=== PATIENT | male | born 1960 | race Caucasian/White ===

== ENCOUNTER 2021-10-08 11:23 | Emergency (ER) | payer BC ==
[~2021-10-08] VITALS: Ht 177.8 cm; Wt 90.7 kg
[2021-10-08 11:40] VITALS: BP_SYST 139
--- NOTE | 2021-10-08 11:45 | NUR ---
Patient to ER bed 4 to gown for evaluation. Side rails up. Report given to J Carlos PADILLA.
--- NOTE | 2021-10-08 12:30 | NUR ---
GEETA Call at bedside examining patient.
--- NOTE | 2021-10-08 13:00 | NUR ---
pt c/o facial swelling x 3-4 days.
--- NOTE | 2021-10-08 14:52 | NUR ---
A/OX4 VSS VERBALIZED UNDERSTANDING OF DC INSTRUCTIONS, AMBULATED WITH STEADY GAIT
== END 2021-10-08 14:51 | disposition home or self-care (01) ==
LOC: SED 11:23
DX: L55.0 Sunburn of first degree (principal); T20.10XA Burn of first degree of head, face, and neck, unspecified site, initial encounter; X58.XXXA Exposure to other specified factors, initial encounter; Y93.89 Activity, other specified; Y92.832 Beach as the place of occurrence of the external cause; Y99.8 Other external cause status
CPT/HCPCS: 99281

== ENCOUNTER 2021-10-09 17:53 | Observation (INO) | payer BC ==
[~2021-10-09] VITALS: Ht 177.8 cm; Wt 90.7 kg
[2021-10-09 18:35] VITALS: BP_SYST 158
[2021-10-10] MEDS ORDERED: DEXAMETHASONE SOD PHOSPHATE 4 MG/ML VIAL IVP ONE (00:30)
[2021-10-10] MEDS ORDERED: AMPICILLIN SODIUM/SULBACTAM NA 3 GM in NS 100 ML IV ONE ×2 (00:30→02:45)
[2021-10-10] MEDS ORDERED: DIPHENHYDRAMINE INJ 50 MG/ML VIAL IVP ONE (00:30)
[2021-10-10 01:41] LABS: BASOPHILS % (AUTO) 0.5 % (0.0-2.0); EOSINOPHILS # (AUTO) 0.4 K/uL (0.0-0.4); EOSINOPHILS % (AUTO) 4.4 % (0.0-4.0); HEMATOCRIT 41.2 % (36-54); HEMOGLOBIN 13.9 g/dL (14.0-18.0); LYMPHOCYTES # (AUTO) 2.5 K/uL (1.0-5.5); LYMPHOCYTES % (AUTO) 31.6 % (20.5-51.5); MEAN CORPUSCULAR HEMOGLOBIN 29 pg (27-31); MEAN CORPUSCULAR HGB CONC 34 % (32-36); MEAN CORPUSCULAR VOLUME 87 fL (79.0-98.0); MONOCYTES # (AUTO) 0.4 K/uL (0.0-1.0); MONOCYTES % (AUTO) 4.7 % (1.7-9.3); NEUTROPHILS # (AUTO) 4.7 K/uL (1.8-7.7); NEUTROPHILS % (AUTO) 58.8 % (40.0-70.0); PLATELET COUNT (AUTO) 156 K/uL (130-430); RED BLOOD CELL COUNT(AUTO) 4.76 MIL/uL (4.2-6.2); WHITE BLOOD COUNT (AUTO) 7.9 K/uL (4.8-10.8)
[2021-10-10] MEDS ORDERED: AMPICILLIN SODIUM/SULBACTAM NA 3 GM VIAL ONE ×2 (01:46→02:38)
[2021-10-10 01:50] LABS: ANION GAP 3 (5-15); CALCIUM 8.1 mg/dL (8.4-11.0); CHLORIDE 108 mmol/L (98-107); CREATININE 1.25 mg/dL (0.55-1.30); GLUCOSE 102 mg/dL (70-99); POTASSIUM 3.8 mmol/L (3.5-5.1); SODIUM SERUM 141 mmol/L (136-145); UREA NITROGEN, BLOOD 17 mg/dL (8-21)
[2021-10-10 01:56] LABS: ALANINE AMINOTRANSFERASE 13 U/L (12-78); ALBUMIN 3.6 g/dL (3.4-4.8); ASPARTATE AMINOTRANSFERASE 21 U/L (10-37); C-REACTIVE PROTEIN QUANT < 0.2 mg/dL (0-0.5); TOTAL BILIRUBIN 0.6 mg/dL (0.0-1.0)
[2021-10-10 02:05] LABS: GFR AFRICAN AMERICAN 76 mL/min (>90)
[2021-10-10 02:11] LABS: ERYTHROCYTE SEDIMENTATION RATE 11 MM/HR (0-15)
[2021-10-10] MEDS ORDERED: ACETAMINOPHEN 500 MG TABLET PO ONE (02:45)
[2021-10-10 08:18] VITALS: BP_SYST 141
[2021-10-10 08:35] LABS: BASOPHILS % (AUTO) 0.3 % (0.0-2.0); EOSINOPHILS % (AUTO) 0.2 % (0.0-4.0); HEMATOCRIT 42.9 % (36-54); HEMOGLOBIN 14.3 g/dL (14.0-18.0); LYMPHOCYTES # (AUTO) 1.1 K/uL (1.0-5.5); LYMPHOCYTES % (AUTO) 14.8 % (20.5-51.5); MEAN CORPUSCULAR HEMOGLOBIN 29 pg (27-31); MEAN CORPUSCULAR HGB CONC 33 % (32-36); MEAN CORPUSCULAR VOLUME 86 fL (79.0-98.0); MONOCYTES # (AUTO) 0.1 K/uL (0.0-1.0); MONOCYTES % (AUTO) 0.7 % (1.7-9.3); NEUTROPHILS # (AUTO) 6.2 K/uL (1.8-7.7); PLATELET COUNT (AUTO) 162 K/uL (130-430); RED BLOOD CELL COUNT(AUTO) 4.97 MIL/uL (4.2-6.2); WHITE BLOOD COUNT (AUTO) 7.4 K/uL (4.8-10.8)
[2021-10-10 09:07] LABS: CALCIUM 8.5 mg/dL (8.4-11.0); CREATININE 1.05 mg/dL (0.55-1.30); POTASSIUM 3.7 mmol/L (3.5-5.1)
[2021-10-10] MEDS ORDERED: lisinopriL 5 MG TABLET PO ONE (11:00)
[2021-10-10] MEDS: DIPHENHYDRAMINE HCL 12.5 MG/5 ML UDC PO PRN (11:17)
[2021-10-10] MEDS: AMPICILLIN SODIUM/SULBACTAM NA 1.5 GM in NS 50 ML IV SCH ×2 (11:32→17:54)
[2021-10-10 12:53] VITALS: BP_SYST 130
[2021-10-10 16:04] VITALS: BP_SYST 118
[2021-10-10] MEDS ORDERED: ACETAMINOPHEN 325 MG TABLET PO PRN (18:00)
[2021-10-10 20:00] VITALS: BP_SYST 121
[2021-10-10] MEDS: predniSONE 20 MG TABLET PO SCH (21:35)
[2021-10-11] VITALS: BP_SYST 127
[2021-10-11] MEDS: AMPICILLIN SODIUM/SULBACTAM NA 1.5 GM in NS 50 ML IV SCH ×3 (00:09→12:24)
[2021-10-11] MEDS: DIPHENHYDRAMINE HCL 12.5 MG/5 ML UDC PO PRN (05:30)
[2021-10-11 08:28] LABS: BASOPHILS % (AUTO) 0.2 % (0.0-2.0); HEMATOCRIT 41.7 % (36-54); LYMPHOCYTES # (AUTO) 1.7 K/uL (1.0-5.5); LYMPHOCYTES % (AUTO) 14.4 % (20.5-51.5); MEAN CORPUSCULAR HEMOGLOBIN 29 pg (27-31); MEAN CORPUSCULAR HGB CONC 34 % (32-36); MEAN CORPUSCULAR VOLUME 86 fL (79.0-98.0); MONOCYTES # (AUTO) 0.3 K/uL (0.0-1.0); MONOCYTES % (AUTO) 2.6 % (1.7-9.3); NEUTROPHILS % (AUTO) 82.8 % (40.0-70.0); PLATELET COUNT (AUTO) 162 K/uL (130-430); RED BLOOD CELL COUNT(AUTO) 4.83 MIL/uL (4.2-6.2); RED CELL DISTRIBUTION WIDTH 13.9 % (9.0-15.0); WHITE BLOOD COUNT (AUTO) 12.1 K/uL (4.8-10.8)
[2021-10-11 08:56] LABS: CALCIUM 7.9 mg/dL (8.4-11.0); CREATININE 1.01 mg/dL (0.55-1.30); POTASSIUM 3.8 mmol/L (3.5-5.1)
[2021-10-11] MEDS ORDERED: lisinopriL 5 MG TABLET PO SCH (09:00)
[2021-10-11] MEDS: predniSONE 20 MG TABLET PO SCH (10:10)
[2021-10-11] MEDS ORDERED: PRED10TA PO (11:24)
[2021-10-11] MEDS ORDERED: CEPH250C PO (11:27)
[2021-10-11 13:36] VITALS: BP_SYST 133
== END 2021-10-11 14:40 | disposition home or self-care (01) ==
LOC: SED 17:53 → SMU 10-10 03:11 → INTOOBSV 10-10 03:11 → SMU 10-10 05:54
PROVIDERS: ADMIT Family Medicine; ATTEND Family Medicine
DX: L03.211 Cellulitis of face (principal); Z20.822 Contact with and (suspected) exposure to COVID-19; T78.40XA Allergy, unspecified, initial encounter; I10 Essential (primary) hypertension; F41.9 Anxiety disorder, unspecified; D72.10 Eosinophilia, unspecified; Z79.899 Other long term (current) drug therapy
CPT/HCPCS: 36415 ×2; 80048 ×2; 80053; 83036; 83605; 83735; 85025 ×2; 85651; 86140; 87040; 87426; 96365; 96366 ×2; 96375; 99285; G0378; J0295 ×2; J1100; J1200; J7512 ×2